=== PATIENT | male | born 1970 | race Hispanic/Latino ===

== ENCOUNTER 2022-12-13 08:30 | Day surgery (SDC) | payer OTHER ==
[2022-12-08 11:46] VITALS: BP 110/79
[2022-12-08 12:01] LABS: BASOPHILS % (AUTO) 0.7 % (0.0-5.0); EOSINOPHILS % (AUTO) 2.4 % (0.0-8.0); HEMATOCRIT 44.1 % (42-54); LYMPHOCYTES % (AUTO) 34.7 % (21.0-51.0); MEAN CORPUSCULAR HEMOGLOBIN 29.4 pg (27.0-33.0); MEAN CORPUSCULAR HGB CONC 33.1 g/dL (32.0-36.0); MEAN CORPUSCULAR VOLUME 88.7 fL (79-99); PLATELET COUNT (AUTO) 195 K/uL (130-400); RED BLOOD CELL COUNT(AUTO) 4.97 MIL/uL (4.50-6.20); RED CELL DISTRIBUTION WIDTH 12.7 % (11.0-15.5); WHITE BLOOD COUNT (AUTO) 4.6 K/uL (4.8-10.8)
[2022-12-08 12:11] LABS: POTASSIUM 4.2 mmol/L (3.5-5.1)
[2022-12-13] VITALS (18 sets, daily range): BP systolic 102–132; BP diastolic 63–96
[~2022-12-13] VITALS: Ht 175.3 cm; Wt 84.0 kg
[2022-12-13] MEDS ORDERED: LACTATED RINGERS 1000ML 1,000 ML IV ONE (08:43)
[2022-12-13] MEDS: CEFAZOLIN SODIUM 2 GM VIAL IVPB SCH ×2 (09:15→10:50)
[2022-12-13] MEDS ORDERED: DICY20TA3 PO (09:19)
[2022-12-13] MEDS ORDERED: TRAM50TA4 PO (09:19)
[2022-12-13] MEDS ORDERED: BUPIVACAINE/PF 0.5% 30ML VIAL ONE (09:59)
[2022-12-13] MEDS ORDERED: PROPOFOL 10 MG/ML 20ML VIAL IV ONE (10:49)
[2022-12-13] MEDS ORDERED: FENTANYL CITRATE PF 50 MCG/1 ML 2ML VIAL ONE ×3 (10:49→12:24)
[2022-12-13] MEDS ORDERED: SUCCINYLCHOLINE 200MG/10ML SYR ONE (10:49)
[2022-12-13] MEDS ORDERED: MIDAZOLAM HCL 1 MG/ML 2ML VIAL ONE (10:49)
[2022-12-13] MEDS ORDERED: ROCURONIUM 10MG/1ML SYR 10 MG/ML ML ONE (10:49)
[2022-12-13] MEDS ORDERED: LIDOCAINE HCL MPF 1% 5ML VIAL ONE (11:16)
[2022-12-13] MEDS ORDERED: GLYCOPYRROLATE 1 MG/5 ML SYRINGE ONE ×2 (11:16→11:59)
[2022-12-13] MEDS ORDERED: NEOSTIGMINE 5MG/5ML SYR IV ONE (11:59)
[2022-12-13] MEDS ORDERED: ONDANSETRON 4MG INJ ONE (12:23)
[2022-12-13] MEDS ORDERED: MEPERIDINE-PF 25 MG/ML SYG ONE ×2 (12:38→13:06)
[2022-12-13] MEDS ORDERED: METOCLOPRAMIDE 10 MG/2 ML VIAL ONE (13:24)
== END 2022-12-13 14:40 | disposition home or self-care (01) ==
LOC: DAH 08:30
PROVIDERS: ATTEND Surgery
DX: R10.11 Right upper quadrant pain (principal); Z20.822 Contact with and (suspected) exposure to COVID-19; K82.8 Other specified diseases of gallbladder; E66.9 Obesity, unspecified; K21.9 Gastro-esophageal reflux disease without esophagitis; K64.0 First degree hemorrhoids; Z68.26 Body mass index [BMI] 26.0-26.9, adult
CPT/HCPCS: 80048; 85025; 87426; 36415; 47562; A6260; A4663; J7030; A4215 ×2; J7120; J3010 ×3; J0330; J3490 ×4; J2710; J2250; J2704; J2405; J2175 ×2; J2765; J0690; C1769 ×3; G0168; A4649 ×3; A4223; A4222; A4221; A4600